=== PATIENT | female | born 1955 ===

== ENCOUNTER → 2018-11-09 | Outpatient (REF) | payer BC | LOC: M LAB LCGH 13:23 | PROVIDERS: ATTEND Nurse Practitioner Adult Health | DX: Z12.4 Encounter for screening for malignant neoplasm of cervix (principal) | CPT/HCPCS: 87624; G0123 ==

== ENCOUNTER → 2018-12-18 | Outpatient (REF) | payer BC | LOC: M LAB LCGH 15:07 | PROVIDERS: ATTEND Surgery | DX: K80.18 Calculus of gallbladder with other cholecystitis without obstruction (principal) ==